=== PATIENT | female | born 1980 | race Caucasian/White ===

== ENCOUNTER → 2018-06-06 19:06 | Outpatient (CLI) | payer SELFPAY ==
--- NOTE | 2018-06-06 | EMB_PTH ---
PATIENT: HALIMA BANKS [facility][id number] AGE/SX: 45/F ROOM: RE06/06/[address]: Dr. Rommel De Luna MD : 1980 BED: DIS: SPEC #: [id number] RECD: 06/06/18 18:58 STATUS: RUBEN ISHA #: [id number] BENEDICT: 06/06/18 00:[address]: Rommel De Luna DEPT: SURGICAL PATHOLOGY RECD BY: Ulysses Meng ENTERED: 06/07/18 11:51 SP TYPE: ENDOM BX/C CHU DR: No Primary Care Phys Tissues: Endometrium, NOS Procedures: Surgery Specimen Level IV HEADER OPERATION: Endometrial biopsy PRE-OP DIAGNOSIS: N93.9, N92.6 TISSUE SUBMITTED: Endometrial biopsy MICROSCOPIC DIAGNOSIS Endometrial biopsy: Interval endometrium to early secretory endometrium. SJ:rochelle 06/08/18 MICROSCOPIC DESCRIPTION Slides are reviewed. GROSS DESCRIPTION Received in fixative is one container labeled with the patient's name and designated EM biopsy. The specimen consists of multiple irregular fragments of hay-pink soft tissue that in aggregate measure 2.5 x 2.5 x 0.2 cm. The specimen is totally submitted in one cassette. / SJ:rochelle 06/07/18 TC:4 CPT: 40620
[2018-06-13 12:15] LABS: HPV Reflexed? NOT INDICATED
== END ==
PROVIDERS: Visit Provider Obstetrics & Gynecology
DX: N85.8 Other specified noninflammatory disorders of uterus (principal); Z12.4 Encounter for screening for malignant neoplasm of cervix
CPT/HCPCS: 88175; 88305; G0145

== ENCOUNTER 2024-06-18 12:50 | Emergency (ER) | payer SELFPAY ==
[2024-06-18 12:50] VITALS: BP 166/83; PULSE 58; RESP 16; TEMP 36.6; O2SAT 99; BMI 30.6
--- NOTE | 2024-06-18 14:08 | EDS_ITS ---
HPI History of Present Illness Chief Complaint: Other, Pain/Inj Informant: patient Onset/Context/Timing Onset: Weeks (2) Context: Sudden Onset Timing: Continuous Quality: Sharp, burning Location: Rectum Worsened by: Nothing Relieved by: Sitz bath's Narrative Narrative: Patient presents with rectal pain that has been getting worse over the past 2 weeks. Patient states it began rather suddenly. Patient states it is constant. Patient states that it feels like it is sharp and burning. Patient states she has been doing sitz bath's which helped somewhat. Patient states she takes daily milk of magnesia which keeps her stools loose. Patient admits to some rectal bleeding. Patient denies any abdominal pain. Patient admits to some nausea but denies any vomiting. Patient denies any urinary complaints. [facility] Medical History (Updated 06/18/24 @ 18:[address] Darron Hampton DO) Anxiety Hypertension Home Medications ?Medication ?Instructions ?Recorded ?Last Taken ?Type alprazolam 0.5 mg tablet 0.5 mg PO BID PRN anxiety 06/18/24 Unknown History buspirone 15 mg tablet 15 mg PO TID anxiety 06/18/24 Unknown History hydrocortisone acetate 25 mg 25 mg OK DAILY #12 ea 06/18/24 Unknown Rx rectal suppository (Anusol-HC) metoprolol tartrate 50 mg tablet 50 mg PO BID 06/18/24 Unknown History Allergy/AdvReac Type Severity Reaction Status Date / Time No Known Allergies Allergy Verified 06/18/24 12:52 Surgical History (Updated 06/18/24 @ 14:[address] Darron Hampton DO) Hx of tonsillectomy History of left salpingo-oophorectomy Social History (Updated 06/18/24 @ 14:[address] Darron Hampton DO) Smoking Status: Current every day smoker tobacco type: cigarettes Smoking packs per day: 1 Smoking cigarettes per day: 20.0 alcohol intake: current alcohol intake frequency: a few times a month Alcohol type: wine ROS ROS ED Constitutional Constitutional ED: Reports chills and subjective; Denies fever(s) Eyes Eyes: Denies blurry vision or change in vision ENT ENT ED: Denies rhinorrhea or sore throat Cardiovascular Cardiovascular: Denies chest pain or palpitations Respiratory/Chest Respiratory/Chest: Denies cough or dyspnea Gastrointestinal Gastrointestinal: Reports nausea; Denies abdominal pain, diarrhea or vomiting Genitourinary Genitourinary ED: Denies dysuria or hematuria Musculoskeletal Musculoskeletal: Reports back pain; Denies neck pain Integumentary Denies abscess or rash Neurologic Neurologic: Denies headache(s) or weakness Allergic/Immunologic Allergic/Immunologic ED: Denies mouth swelling or urticaria EXAM Physical Exam Const Vital Signs: 06/18/24 12:50 06/18/24 14:02 06/18/24 15:10 Temperature 98 F Temperature Source Temporal Pulse Rate 58 L 44 L Respiratory Rate 16 14 Respiratory Effort Normal Non-Labored Respiratory Pattern Normal Blood Pressure 166/83 H 163/96 H Blood Pressure Mean 110 118 Pulse Ox 99 98 Oxygen Delivery Method Room Air Room Air 06/18/24 16:45 Temperature Temperature Source Pulse Rate 58 L Respiratory Rate 16 Respiratory Effort Respiratory Pattern Blood Pressure 150/78 H Blood Pressure Mean 102 Pulse Ox 99 Oxygen Delivery Method Room Air Positive well nourished and well developed General Appearance ED: well developed and NAD HEENT Reports moist mucous membranes Neck supple and no JVD Resp normal respiratory effort and clear to auscultation bilaterally Cardio regular rate and regular rhythm GI non-tender and non-distended GI Narrative: Rectal exam showed old external hemorrhoids. There is no thrombosis. There is no active bleeding noted. There is tenderness on rectal exam. There are no masses palpated. Patient was unable to tolerate full digital exam due to the pain. Palpation: soft Rectal Exam: normal sphincter tone, external hemorrhoid(s) and tenderness Neuro oriented x3, CN's II-XII intact bilaterally and no sensory deficits noted Sensorium / Orientation: alert Motor Exam: strength 5/5 throughout Psych mental status grossly normal MDM MDM MDM Narrative Medical decision making narrative: Differential diagnosis includes rectal mass, internal hemorrhoid, diverticulitis, proctitis, pelvic abscess, and urinary tract infection. CBC will be obtained to assess for leukocytosis and anemia. Basic metabolic profile will be obtained to assess for electrolyte abnormality and renal function. Stool will be sent for occult blood to assess for gastrointestinal bleeding. Urinalysis will be obtained to assess for urinary tract infection and hematuria. CT scan of the abdomen and pelvis will be obtained to assess for abscess, mass, and diverticulitis. Lab Data Attestation: I reviewed the patient's lab results. Lab results narrative: CBC was reviewed. There is a slight leukocytosis of 11.9. The remainder is within normal limits. Basic metabolic profile was reviewed and was within normal limits. Serum hCG was reviewed and was negative. Urinalysis was reviewed. There is no evidence of urinary tract infection or hematuria. Labs: Laboratory Results - last 24 hr 06/18/24 06/18/24 14:11 15:39 WBC 11.9 H RBC 4.56 Hgb 13.5 Hct 41.6 MCV 91.2 MCH 29.6 MCHC 32.5 RDW Std Deviation 42.9 RDW Coeff of Tae 13.0 Plt Count 351 MPV 9.4 Immature Gran % (Auto) 0.300 Neut % (Auto) 51.1 Lymph % (Auto) 38.1 [place] % (Auto) 7.6 Eos % (Auto) 2.4 Baso % (Auto) 0.5 Absolute Neuts (auto) 6.1 Absolute Lymphs (auto) 4.54 H Nucleated RBC % 0 Differential Comment SCANNED Reactive Lymphocytes RARE Sodium 137 Potassium 4.4 Chloride 106 Carbon Dioxide 26.0 Anion Gap 5 BUN 11 Creatinine 1.03 H Estim Creat Clear Calc 70.94 Est GFR (MDRD) Af Amer 75 Est GFR (MDRD) Non-Af 62 BUN/Creatinine Ratio 10.7 Glucose 107 H Calcium 9.6 Serum , Qual NEGATIVE Urine Color Yellow Urine Clarity Clear Urine pH 7.0 Ur Specific [place] 1.010 Urine Protein Negative Urine Glucose (UA) Normal Urine Ketones Negative Urine Occult Blood 250 H Urine Nitrite Negative Urine Bilirubin Negative Urine Urobilinogen Normal Ur Leukocyte Esterase Negative Urine RBC 0 SEEN Urine WBC 0 SEEN Ur Squamous Epith Cells 0-5 SEEN Urine Bacteria 1+ Urine Mucus 0 SEEN Radiography Diagnostic Testing: Clinical Impression(s) from Imaging Studies Abdomen/Pelvis CT 06/18/24 14:40 IMPRESSION: No acute findings in the abdomen or pelvis. Electronically Signed: Antoni Pham MD at 17:01 EDT , CT scan of the abdomen pelvis was obtained. There is no acute process noted. There is no free air or free fluid. This was interpreted by the radiologist and was also independently reviewed by myself. Treatment and Re-Evaluation :: Patient was given IV fluids, morphine, and Zofran. Patient was advised of her findings. Patient was feeling better on reevaluation. Patient was advised that this could be an internal hemorrhoid causing her pain. Patient was advised that there is no mass or obstruction causing her pain. There is no abscess. Patient was given prescription for Anusol HC suppositories. Patient was instructed to follow-up with her primary care physician in 3 to 5 days. Patient was advised that she may possibly need to see either a general surgeon or industrial relations representative for further evaluation. Patient and spouse understood and were agreeable with the plan. All questions were answered. Discharge Plan Triage Chief Complaint: Other, Pain/Inj ED Provider: Darron Hampton Dx/Rx/DC Orders Clinical Impression: Rectal pain, Hypertension, Tobacco use Instructions: ED Hemorrhoids, ED Pain, Acute, Uncertain Cause Prescriptions: New hydrocortisone acetate [Anusol-HC] 25 mg suppository 25 mg OK DAILY Qty: 12 0RF No Action alprazolam 0.5 mg tablet 0.5 mg PO BID PRN (Reason: anxiety) metoprolol tartrate 50 mg tablet 50 mg PO BID buspirone 15 mg tablet 15 mg PO TID Primary Care Provider: Annmarie Peres Referrals: Annmarie Peres MD [Primary Care Provider] - 3-5 Days Print Language: [place] Disposition Disposition: Home, Self Care
--- NOTE | 2024-06-18 14:40 | CT_ITS ---
INDICATION: Pelvic pain EXAMINATION: CT ABDOMEN AND PELVIS WITH CONTRAST - CT Abdomen And Pelvis W/ Contrast Injection TECHNIQUE: Helically acquired images were obtained of the abdomen and pelvis following IV contrast. A radiation dose optimization technique was used for this scan. IV Contrast dosage and agent: 100 cc [id number]-370 Oral contrast: None. COMPARISON: None. FINDINGS: LOWER CHEST: Lung bases are clear. No cardiomegaly or pericardial effusion. LIVER: Homogeneous. No focal mass. GALLBLADDER AND BILIARY TREE: No calcified gallstones. No gallbladder distension or wall edema. No intra- or extrahepatic biliary ductal dilation. PANCREAS: No focal cystic or solid mass. SPLEEN: Normal size without focal cystic or solid mass. ADRENAL GLANDS: No nodules. KIDNEYS AND URETERS: Uniform enhancement. No hydronephrosis. PERITONEUM: No ascites or free air. BOWEL: Normal appendix. No stomach or bowel distension. No focal inflammatory change. LYMPH NODES: Bilateral shotty inguinal adenopathy. VESSELS: Aorta is non-dilated. URINARY BLADDER: Nondistended. REPRODUCTIVE ORGANS: No pelvic masses. ABDOMINAL WALL: No discrete abdominal or pelvic wall hernia. BONES: No acute or aggressive abnormality. CT/Abdomen/Pelvis W IV Cont ONLY IMPRESSION: No acute findings in the abdomen or pelvis. Electronically Signed: Antoni Pham MD at 17:01 EDT ,
[2024-06-18] MEDS: 0.9% Normal Saline (1000mL) 1,000 ML 999 ML IV (14:53)
[2024-06-18] MEDS: Ondansetron 4 MG/2 ML Vial IV (14:53)
[2024-06-18] MEDS: Morphine 4 MG/ML Syringe IV ×2 (14:53→16:46)
[2024-06-18 15:10] VITALS: BP 163/96; PULSE 44; RESP 14; O2SAT 98
[2024-06-18 15:12] LABS: Absolute Lymphocyte Count 4.54 X10^3/uL (0.83-4.51); Absolute Neutrophil Count 6.1 X10^3/uL (2.0-7.7); Basophil# 0.06 X10^3/uL; Basophil% 0.5 % (0-1); Eosinophil# 0.28 X10^3/uL; Eosinophils% 2.4 % (0-5); Hematocrit 41.6 % (37-47); Hemoglobin 13.5 g/dL (12.0-15.0); Lymphocyte # 4.54 X10^3/ul (0.83-4.51); Lymphocyte % 38.1 % (19-41); Mean Corp Hgb Conc 32.5 g/dL (32-36); Mean Corpuscular Hgb 29.6 pg (27.0-32.0); Mean Corpuscular Volume 91.2 fL (81-99); Mean Platelet Vol. 9.4 fl (6.2-12.0); Monocyte% 7.6 % (0-10); NRBC Flagged by Analyzer 0 % (0-5); Neutrophil % 51.1 % (47-70); POSITIVE MORPHOLOGY YES; Platelet Count 351 K/mm3 (150-450); RBC Distribution Width SD 42.9 fl (35.1-43.9); Red Blood Count 4.56 M/mm3 (4.2-5.4); White Blood Count 11.9 K/mm3 (4.4-11.0)
[2024-06-18 15:13] LABS: Differential Indicated SCAN CRITERIA MET
[2024-06-18 15:24] LABS: Internal QC Validated? YES +Cl - CLEAR BKGD; Pregnancy, Serum, hCG Quali. NEGATIVE Negative
[2024-06-18 15:26] LABS: Anion Gap 5 (5-15); BUN 11 mg/dL (7-18); BUN/Creat Ratio 10.7 RATIO (10-20); Calcium,Total 9.6 mg/dL (8.5-10.1); Chloride 106 mmol/L (98-107); Creatinine, Serum 1.03 mg/dL (0.55-1.02); EST Glomerular Filtration Rate 62 mL/min (>60); Est Glom Filt Rate - Afr Amer 75 mL/min (>60); Estimated Creatinine Clearance 70.94 ml/min; Glucose 107 mg/dL (74-106); Potassium 4.4 mmol/L (3.5-5.1); Sodium Level 137 mmol/L (136-145)
[2024-06-18 15:45] LABS: Differential Comment SCANNED; Reactive Lymphocyte RARE
[2024-06-18 15:45] LABS: Mucous, Urine 0 SEEN /hpf (<or=2+); Red Blood Cells-Urine 0 SEEN /hpf (0-5); White Blood Cells 0 SEEN /hpf (0-5)
[2024-06-18 15:49] LABS: Color, Urine Yellow (Yellow); Glucose, Dipstick Normal (Normal); Ketone-Dipstick Negative (Negative); Leukocyte Esterase-Dipstick Negative /ul (Negative); Nitrite-Dipstick Negative (Negative); Occult Blood-Urine 250 /ul (Negative); Protein-Dipstick Negative (Negative); Urine Bilirubin Dipstick Negative (Negative); Urine Clarity Clear (Clear); Urine Urobilinogen Normal (Normal)
[2024-06-18 15:54] LABS: Bacteria 1+ /hpf (None Seen); Squamous Epithelial Cells - UA 0-5 SEEN /hpf (5-10)
[2024-06-18 16:45] VITALS: BP 150/78; PULSE 58; RESP 16; O2SAT 99
[2024-06-18 18:00] VITALS: BP 141/90; PULSE 68; RESP 16; O2SAT 98
[2024-06-18 18:17] VITALS: BP 155/97; PULSE 54; RESP 16; TEMP 36.6; O2SAT 97
== END 2024-06-18 18:25 | disposition home or self-care (01) ==
PROVIDERS: Emergency Provider Emergency Medicine; PCP Family Medicine; Visit Provider Emergency Medicine
DX: K62.89 Other specified diseases of anus and rectum (principal); R11.0 Nausea; F17.210 Nicotine dependence, cigarettes, uncomplicated; I10 Essential (primary) hypertension; F41.9 Anxiety disorder, unspecified; Z90.721 Acquired absence of ovaries, unilateral; Z79.899 Other long term (current) drug therapy
CPT/HCPCS: 74177; 80048; 81001; 82274; 84703; 85025; 96361; 96374; 96375; 96376; 99283; J7030; Q9967; A4216; J2405

== ENCOUNTER 2024-09-11 05:57 | Day surgery (SDC) | payer SELFPAY ==
[2024-09-11] VITALS (9 sets, daily range): BP systolic 114–157; BP diastolic 89–102; PULSE 64–84; RESP 16–18; TEMP 36.6–37; O2SAT 98–100; BMI 30.6
--- NOTE | 2024-09-11 06:56 | PCM.PRE.AN2 ---
ASA Classification* ASA Classification ASA Classification: 2 Assessment & Plan Anesthesia* Anesthesia Assessment Anesthesia Assessment: Discussed sedation and/or anesthesia options, risks, benefits, and alternatives with patient/parents/legal guardian/POA. Questions invited. The patient/parents/legal guardian/POA seems to understand and agrees to proceed with anesthesia plan. Reviewed the physical assessment, medical history, allergy history and patient home medications list prior to surgery/procedure/anesthetic and documented any changes. Performed airway and anesthesia risk assessments. Anesthesia Type Anesthesia Type: MAC Anesthesia Focused Assessment* Temperature: 98.6 F Pulse Rate: 64 Blood Pressure: 123/89 Respiratory Rate: 16 Pulse Ox: 98 Airway Assessment Mouth opens: >3 cm Mallampati Score: II Focused Labs Anesthesia Preop lab: CBC WBC 11.9 K/mm3 (4.4-11.0) H 06/18/24 14:11 RBC 4.56 M/mm3 (4.2-5.4) 06/18/24 14:11 Hgb 13.5 g/dL (12.0-15.0) 06/18/24 14:11 Hct 41.6 % (37-47) 06/18/24 14:11 Plt Count 351 K/mm3 (150-450) 06/18/24 14:11 CHEMISTRY Potassium 4.4 mmol/L (3.5-5.1) 06/18/24 14:11 Sodium 137 mmol/L (136-145) 06/18/24 14:11 BUN 11 mg/dL (7-18) 06/18/24 14:11 Creatinine 1.03 mg/dL (0.55-1.02) H 06/18/24 14:11 Glucose 107 mg/dL (74-106) H 06/18/24 14:11 COAG Pre-Assessment Diagnosis/Proposed Procedure Planned Operative Procedure(s): LATERAL INTERIOR SPHINCTEROTOMY Anesthesia History 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 When Was Last Pacemaker Check QUESTION #4 FULL TEXT: You/Your Family Experience fever (hyperthermia) with Anesthesia Last Oral Intake Last Oral intake: Last Oral Intake NPO since 23:00 09/11/24 06:26 Meds taken in AM with sips of water? Meds patient instructed to take am of surgery PONV PONV - telecommunication systems designer: PONV - telecommunication systems designer Female Yes 09/09/24 08:32 HX of Motion Sickness No 09/09/24 08:32 HX of N/V After Surgery Yes 09/09/24 08:32 Non-Smoker Yes 09/09/24 08:32 Duration of Surgery greater Yes 09/09/24 08:32 than 60 minutes Number of Risk Factors 4 09/09/24 08:32 PONV Score Severe Risk 09/09/24 08:32 Height & Weight Height & Weight: Anesthesia: Height & Weight Height 5 ft 4 in 09/11/24 06:26 Weight: 81 kg 09/11/24 06:26 Body Mass Index (BMI) 30.6 09/11/24 06:26 Respiratory Assessment Respiratory Assessment - telecommunication systems designer: Respiratory Tract Infection Hx - telecommunication systems designer Hx Respiratory Tract Infection No 09/09/24 08:32 STOP Sleep Apnea STOP Sleep Apnea - telecommunication systems designer: STOP Sleep Apnea - telecommunication systems designer Hx Hypertension Yes 09/09/24 08:32 Hx Sleep Apnea No 09/09/24 08:32 CPAP BIPAP Do you snore loudly (louder No 09/09/24 08:32 than talking or can be heard Do you often feel tired/ No 09/09/24 08:32 fatigued/ sleepy during daytime? Has anyone observed you stop No 09/09/24 08:32 breathing during sleep? STOP Results Negative 09/09/24 08:32 QUESTION #5 FULL TEXT : Do you snore loudly (louder than talking or can be heard through closed doors)? 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 Specify any problems Hx of Preganancy in last 3 No 09/09/24 08:32 Months Nurse Filling Out Transfusion [email or web address] 09/09/24 08:32 & Questions: Date: 09/09/24 09/09/24 08:32 Time: 08:41 09/09/24 08:32 Patient unable to answer at this time (ie. confused, unrespo /Reproduction History /Reproductive History - telecommunication systems designer: /Reproductive Hx- telecommunication systems designer Hx Now Gestational Age (in weeks): EDC: Hx Hx Para Hx Section SAB No 08/07/24 10:43 PFSH Medical History Back pain Smoker Anal fissure Rectal bleeding Rectocele Rectal pain Anxiety Hypertension Home Medications ?Medication ?Instructions ?Recorded ?Last Taken ?Type alprazolam 0.5 mg tablet 0.5 mg PO BID PRN anxiety 06/18/24 09/11/24 History buspirone 15 mg tablet 15 mg PO TID anxiety 06/18/24 09/11/24 History metoprolol tartrate 50 mg tablet 50 mg PO BID 06/18/24 09/11/24 History tramadol 50 mg tablet 50 mg PO BID PRN pain 08/07/24 Unknown History Diltiazem 2% ointment (compound) #30 grams 08/09/24 Unknown Rx (Diltiazem 2% ointment) lidocaine HCl 2 % mucosal jelly in 1 applic topical TID PRN pain #20 08/09/24 09/11/24 Rx applicator (Glydo) mL cyclobenzaprine 5 mg tablet 5 mg PO TID PRN muscle spasm 7 09/06/24 Unknown Rx days #20 tabs rutin 500 mg tablet 500 mg PO DAILY 09/09/24 09/06/24 History Allergy/AdvReac Type Severity Reaction Status Date / Time No Known Allergies Allergy Verified 09/11/24 06:24 Surgical History Hx of tonsillectomy History of left salpingo-oophorectomy Social History adopted: No number of children: 2 Smoking Status: Current every day smoker tobacco type: cigarettes alcohol intake: current alcohol intake frequency: a few times a month Alcohol type: wine substance use type: does not use seatbelt use: always do you feel safe at home: Yes Review of Systems (Anesthesia) ROS Narrative System reviewed and no additional complaints, except as documented.
--- NOTE | 2024-09-11 07:16 | PCM.HP.STD ---
HPI - General General Date of Admission: 09/11/24 Date of Service: 09/11/24 Chief Complaint: Anal fissure HPI Narrative HALIMA BANKS, is a 44 F who presents for elective lateral internal sphincterotomy for treatment of anal fissure. She had been treated with conservative measures without success. She presents today for sphincterotomy. [facility] Medical History Back pain Smoker Anal fissure Rectal bleeding Rectocele Rectal pain Anxiety Hypertension Home Medications ?Medication ?Instructions ?Recorded ?Last Taken ?Type alprazolam 0.5 mg tablet 0.5 mg PO BID PRN anxiety 06/18/24 09/11/24 History buspirone 15 mg tablet 15 mg PO TID anxiety 06/18/24 09/11/24 History metoprolol tartrate 50 mg tablet 50 mg PO BID 06/18/24 09/11/24 History tramadol 50 mg tablet 50 mg PO BID PRN pain 08/07/24 Unknown History Diltiazem 2% ointment (compound) #30 grams 08/09/24 Unknown Rx (Diltiazem 2% ointment) lidocaine HCl 2 % mucosal jelly in 1 applic topical TID PRN pain #20 08/09/24 09/11/24 Rx applicator (Glydo) mL cyclobenzaprine 5 mg tablet 5 mg PO TID PRN muscle spasm 7 09/06/24 Unknown Rx days #20 tabs rutin 500 mg tablet 500 mg PO DAILY 09/09/24 09/06/24 History Allergy/AdvReac Type Severity Reaction Status Date / Time No Known Allergies Allergy Verified 09/11/24 06:24 Surgical History Hx of tonsillectomy History of left salpingo-oophorectomy Social History adopted: No number of children: 2 Smoking Status: Current every day smoker tobacco type: cigarettes alcohol intake: current alcohol intake frequency: a few times a month Alcohol type: wine substance use type: does not use seatbelt use: always do you feel safe at home: Yes Vital Signs Vital Signs Vital Signs: 09/11/24 06:26 09/11/24 06:26 09/11/24 06:56 Temperature 98.6 F 98.6 F Temperature Source Temporal Pulse Rate 64 64 Respiratory Rate 16 16 Respiratory Pattern Normal Blood Pressure 123/89 H 123/89 H Blood Pressure Mean 100 Blood Pressure Source Monitor Blood Pressure Position Sitting Pulse Ox 98 98 Oxygen Delivery Method Room Air Weight Weight: 178 lb 9.191 oz Body Mass Index (BMI) 30.6 Physical Exam Narrative She is alert and oriented x 3. She is in no acute distress. 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 I have offered her a lateral internal sphincterotomy surgery as conservative measures have not been successful in healing this fissure. We again discussed the details of the planned procedure including the risks benefits and alternatives. She wishes to proceed. This will begin shortly. Charges/Coding Visit Charges Inpatient E&M: 92725 Init Hosp L1
[2024-09-11] MEDS: 0.9% Normal Saline (1000mL) 1,000 ML 15 ML IV (07:20)
[2024-09-11] MEDS: Bupiv/Epi 0.25% 30 ML Vial (08:03)
[2024-09-11] MEDS: Dibucaine 30 GM Tube 1 APPLIC (08:03)
--- NOTE | 2024-09-11 08:18 | PCM.POST.ANE ---
Anesthesia: Postop Eval I Current Vital Signs Temperature: 98.1 F Pulse Rate: 84 Blood Pressure: 155/95 Respiratory Rate: 18 Pulse Ox: 98 Oxygen Delivery Method: Room Air Assessment Airway patent: Yes Spontaneous unlabored respirations: Yes Mental status: Awake and Calm nausea: No Vomiting: No Anesthesia Complication: No Fluid Hydration Crystalloid volume administer (ml): 500 Total IV fluid infused: 500 Progress Note Anesthesia document: Postop Eval 1 completed: Yes
--- NOTE | 2024-09-11 08:27 | DCINST_ITS ---
Discharge Instructions Diet Discharge Diet: Light diet - advance as tolerated Activity Discharge Activity: Return to Normal Activity Dressing / Incision Call your doctor if your incision/area has: Continuous Slow Oozing, Sudden Increased Bleeding, Increased Pain/ Swelling, Increased Redness, Foul Smelling Discharge and Swelling at the incision site Call your doctor if you observe: Fever of 101 or Higher Cleanse incision/area with: Soap & Water Additional Dressing/Incision Instructions:: A piece of Gelfoam was placed within the anus to control any bleeding. It is okay if this falls out. Do not be alarmed if this occurs Follow Up Care Please Follow Up With: Juan Francisco Huffman MD When: 2 weeks Test Results: Test results from this visit will be discussed in further detail at your follow- up appointment, if applicable. Discharge Plan Admission Primary Reason for Your Visit: Surgery for anal fissure Attending Provider: Juan Francisco Huffman Primary Care Provider: Annmarie Peres Instructions Print Language: [place] Discharge Orders/Prescriptions Prescriptions: New oxycodone-acetaminophen [Percocet] 5-325 mg tablet 1 tab PO Q8H PRN (Reason: pain) 3 Days Qty: 7 0RF Continued tramadol 50 mg tablet 50 mg PO BID PRN (Reason: pain) (DME) Diltiazem 2% ointment Ointment See Rx Instructions .Route Qty: 30 1RF Rx Instructions: BID rectal pain lidocaine HCl [Glydo] 2 % jelly in applicator 1 applic topical TID PRN (Reason: pain) Qty: 20 1RF Rx Instructions: apply to anus as directed cyclobenzaprine 5 mg tablet 5 mg PO TID PRN (Reason: muscle spasm) 7 Days Qty: 20 0RF alprazolam 0.5 mg tablet 0.5 mg PO BID PRN (Reason: anxiety) metoprolol tartrate 50 mg tablet 50 mg PO BID buspirone 15 mg tablet 15 mg PO TID rutin 500 mg tablet 500 mg PO DAILY Referrals / Follow Up: Annmarie Peres MD [Primary Care Provider] - Disposition Disposition (needs filled in before D/C Order can be placed): Home, Self Care
--- NOTE | 2024-09-11 08:32 | PCM.OPRPT ---
Problems Associated Problem List Diagnoses (1) Anal fissure: Procedures Digestive [id number]-49xxx: Other Procedure See Notes (66008 lateral internal sphincterotomy) Operative Report (Standard) Operative Information Date of Procedure: 09/11/24 Pre-Operative Diagnosis: Chronic posterior anal fissure Post-Operative Diagnosis: Same Surgery/Procedure Performed: Lateral internal sphincterotomy lodging facilities manager: No Type of Anesthesia: General and Local RN Documented Start/Stop Times: Operation Date: 09/11/24 07:30 Case Time Into Pre-Op 09/11/24 06:09 Out of Pre-Op 09/11/24 07:24 Anesthesia Start 09/11/24 07:28 Into Room 09/11/24 07:28 Procedure Start 09/11/24 07:49 Into Recovery 09/11/24 08:16 Procedure Start Time: 07:49 Procedure Stop Time: 08:05 Select all DRAINS/GRAFTS/IMPLANTS that apply: None Special Medications: None Estimated Blood Loss: 2 mL Specimen collected: No Description of surgery: The patient is a 44-year-old female who is recently seen through my office with anal pain and occasional bleeding. When seen in my office she was found to have a fairly sizable chronic appearing posterior anal fissure as a contributing issue for her pain. She did have hemorrhoids however her symptoms were clearly related to this fissure. We initially tried about 4 weeks of conservative measures with diltiazem/lidocaine ointment. This provided some relief but not enough to resolve her issue. When seen in the office more recently, I recommended a lateral internal sphincterotomy surgery. We discussed the details of the operation as well as the potential risks, benefits, and alternatives. She wished to proceed. The patient was brought to the operating room today following informed consent. She was placed prone on the operative table with arms on arm boards. General anesthesia was used. She was intubated before rolled into the prone position. The bed was positioned in a jackknife position. Tape was used to retract the buttock tissue. The perianal area was then prepped and draped in the usual sterile manner. Examination was performed and she had moderate external hemorrhoids that were nonbleeding. The posterior anal fissure was indeed present. Digital rectal exam was negative for any obvious masses or other obvious abnormalities. Next a bivalve anal speculum was inserted. This was used to provide retraction and allow identification of the sphincter muscle complex. A small incision was made overlying the edge of the muscle using #15 blade. Prior to making the incision a small amount of local anesthetic was injected into the subdermal layer. Next using a curved hemostat I was able to dissect out the internal sphincter muscle. Hemostasis was excellent. Bovie electrocautery was then used to partly cut the internal sphincter musculature just enough to provide slight decrease in tone. Again hemostasis was excellent. The wound was then closed using 2-0 chromic in a running locking manner. I then turned attention to the fissure itself. The base of the fissure did have some chronic appearing granulation tissue. I did cauterize the area slightly just to see if we can stimulate some ingrowth of better tissue. I then also lightly closed the skin overlying the fissure to see if this would provide some relief and speed the healing process. A total of 30 cc of local anesthetic was then injected into the area of the bilateral pudendal block manner. A piece of Gelfoam was then rolled and placed into the anus to provide hemostasis. She was awakened anesthesia and taken to recovery in good condition. Surgical Findings: Chronic appearing posterior anal fissure Complications Complications: No Admit VTE Documentation VTE Present on Admission: No VTE Mechan Device Prophylaxis: SCD's VTE Pharm Prophylaxis ordered?: No Reason prophylaxis not ordered: Treatment Not Indicated
--- NOTE | 2024-09-11 11:27 | POSTOPAN2_ITS ---
Anesthesia Postop Eval I Sum Postop Eval Completion status Anesthesia document: Postop Eval 1 completed: Yes Anesthesia Postop Eval I Summary Anesthesia Postop Eval I Summary: Anesthesia Postop Eval I: Assessment Summary Airway patent Yes 09/11/24 08:18 TURBINE [email or web address] Spontaneous unlabored Yes 09/11/24 08:18 TURBINE [email or web address] respirations Mental status Awake,Calm 09/11/24 08:18 TURBINE [email or web address] nausea No 09/11/24 08:18 TURBINE [email or web address] Vomiting No 09/11/24 08:18 TURBINE INSPECTORPETEY Anesthesia Postop Eval I: Fluid Summary Crystalloid volume administer 500 09/11/24 08:18 TURBINE [email or web address].[email or web address] (ml) Colloids volume administered ( ml) Blood Product volume administered (ml) Total IV fluid infused 500 09/11/24 08:18 TURBINE [email or web address] Anesthesia Postop Eval I: Summary Notes Anesthesia Complication No 09/11/24 08:18 TURBINE INSPECTORPETEY Anesthesia Complication Comment: Post-operative progress note Anesthesia: Postop Eval II Evaluation Mental status: Awake Pain Level: 0 nausea: No Vomiting: No
--- NOTE | 2024-09-11 11:27 | PCM.POSTANE2 ---
Anesthesia Postop Eval I Sum Postop Eval Completion status Anesthesia document: Postop Eval 1 completed: Yes Anesthesia Postop Eval I Summary Anesthesia Postop Eval I Summary: Anesthesia Postop Eval I: Assessment Summary Airway patent Yes 09/11/24 08:18 DRUG ROOM OPERATOR.[email or web address] Spontaneous unlabored Yes 09/11/24 08:18 DRUG ROOM OPERATOR.[email or web address] respirations Mental status Awake,Calm 09/11/24 08:18 DRUG ROOM OPERATOR.[email or web address] nausea No 09/11/24 08:18 DRUG ROOM OPERATOR.[email or web address] Vomiting No 09/11/24 08:18 DRUG ROOM OPERATORPETEY Anesthesia Postop Eval I: Fluid Summary Crystalloid volume administer 500 09/11/24 08:18 DRUG ROOM OPERATOR.JAYLENOBY (ml) Colloids volume administered ( ml) Blood Product volume administered (ml) Total IV fluid infused 500 09/11/24 08:18 DRUG ROOM OPERATOR.[email or web address] Anesthesia Postop Eval I: Summary Notes Anesthesia Complication No 09/11/24 08:18 DRUG ROOM OPERATORPETEY Anesthesia Complication Comment: Post-operative progress note Anesthesia: Postop Eval II Evaluation Mental status: Awake Pain Level: 0 nausea: No Vomiting: No
== END 2024-09-11 09:46 | disposition home or self-care (01) ==
LOC: SDC 06:00 → AC 06:06
PROVIDERS: PCP Family Medicine; Referring Provider Surgery; Visit Provider Surgery
PROC: (CPT 46942; principal; 2024-09-11 07:15)
DX: K60.1 Chronic anal fissure (principal); I10 Essential (primary) hypertension; F17.210 Nicotine dependence, cigarettes, uncomplicated; F41.9 Anxiety disorder, unspecified
CPT/HCPCS: 46942; 00902; A4216; J2405

== ENCOUNTER → 2024-12-04 | Outpatient (CLI) | payer SELFPAY ==
[2024-12-09 15:07] LABS: HPV APTIMA, High Risk Negative (Negative)
== END | disposition home or self-care (01) ==
LOC: LABSPEC 15:55
PROVIDERS: PCP Family Medicine; Referring Provider Nurse Practitioner Family; Visit Provider Nurse Practitioner Family
DX: Z12.4 Encounter for screening for malignant neoplasm of cervix (principal)
CPT/HCPCS: 87624; 88175; G0145